=== PATIENT | female | born 1950 | race African-American/Black ===

== ENCOUNTER → 2016-10-01 | Outpatient (CLI) | payer MEDICARE, BC ==
[2016-10-01 18:44] LABS: ALANINE AMINOTRANSFERASE 38 U/L (9-52); ALBUMIN 4.2 g/dL (3.5-5.0); ALKALINE PHOSPHATASE 95 U/L (38-126); ANION GAP 12 (5-19); ASPARTATE AMINO TRANSFERASE 30 U/L (14-36); BILIRUBIN,DIRECT 0.3 mg/dL (0.0-0.4); BILIRUBIN,TOTAL 0.5 mg/dL (0.2-1.3); BLOOD UREA NITROGEN 24 mg/dL (7-20); C-REACTIVE PROTEIN 12.2 mg/L (<10.0); CALCIUM 9.8 mg/dL (8.4-10.2); CARBON DIOXIDE 27 mmol/L (22-30); CHLORIDE 102 mmol/L (98-107); CREATININE RESULT 1.17 mg/dL (0.52-1.25); GLUCOSE 81 mg/dL (75-110); POTASSIUM 3.9 mmol/L (3.6-5.0); SODIUM 141.2 mmol/L (137-145); TOTAL PROTEIN 7.5 g/dL (6.3-8.2)
[2016-10-03 11:41] LABS: JO-1 ANTIBODY (ANACOMP) <0.2 AI (0.0-0.9)
== END ==
LOC: OD 16:42
PROVIDERS: ATTEND Student in an Organized Health Care Education/Training Program
DX: M25.511 Pain in right shoulder (principal); F51.01 Primary insomnia
CPT/HCPCS: 36415; 80053; 86140; 86225; 86235; 86430

== ENCOUNTER → 2016-10-30 | Outpatient (CLI) | payer BC ==
--- NOTE | 2016-10-30 18:38 | RADIOLOGY REPORT (SQ) ---
EXAM DESCRIPTION: MRI LUMBAR SPINE WITHOUT COMPLETED DATE/TIME: 10/30/2016 4:38 pm REASON FOR STUDY: LOW BACK PAIN M54.5 LOW BACK PAIN M25.552 PAIN IN LEFT HIP M25.551 PAIN IN RIGH T HIP COMPARISON: None. TECHNIQUE: Sagittal and Axial imaging includes T1, T2, STIR and gradient echo sequences. Coronal T2/ HASTE imaging. LIMITATIONS: None. FINDINGS: VISUALIZED UPPER ABDOMEN: Limited evaluation. Multiple bilateral renal cysts consistent with polycystic kidney disease. SEGMENTATION: No transitional anatomy. The lowest well-developed disc space is labeled L5-S1. ALIGNMENT: 3 mm anterolisthesis of L4 on L5. VERTEBRAE: Intact. BONE MARROW: Normal. No marrow replacement or reactive changes. DISC SIGNAL: Normal. No significant abnormal signal or loss of height. POSTERIOR ELEMENTS: Generally intact. No pars defect evident. HARDWARE: None in the spine. CORD AND CONUS: Normal in size and signal intensity. Conus at the appropriate level. SOFT TISSUES: No aortic aneurysm seen. No bulky retroperitoneal adenopathy or mass. No paraspinal mas s or fluid. L1-L2: Diffuse posterior annular bulge. Mild facet arthropathy. Mild spinal stenosis and exit sinan inal stenosis. L2-L3: Diffuse posterior annular bulge with left paracentral disc protrusion. Moderate to severe spi nal stenosis. Mild facet arthropathy. Mild exit foraminal stenosis. L3-L4: Diffuse posterior annular bulge. Severe facet arthropathy, particularly on the right. Modera te -severe spinal stenosis and severe right exit foraminal stenosis. L4-L5: Diffuse posterior annular bulge. Severe facet arthropathy. Severe spinal stenosis and modera te exit foraminal stenosis. L5-S1: Diffuse posterior annular bulge. Severe facet arthropathy. Moderate spinal stenosis and exit foraminal stenosis. LOWER THORACIC: Incompletely imaged. Diffuse posterior annular bulge at T12-L1 and facet arthropathy . Mild spinal stenosis and exit foraminal stenosis. SACRUM: Visualized upper sacrum intact. OTHER: No other significant findings. IMPRESSION: MULTILEVEL CHRONIC DEGENERATIVE CHANGES WITH STENOSIS DESCRIBED. NO APPARENT ACUTE F INDINGS. TECHNICAL DOCUMENTATION: JOB ID: [id number]- All Rights Reserved
== END ==
LOC: RAD 15:07
PROVIDERS: ATTEND Student in an Organized Health Care Education/Training Program
DX: M54.16 Radiculopathy, lumbar region (principal); M25.552 Pain in left hip; M25.551 Pain in right hip
CPT/HCPCS: 72148

== ENCOUNTER → 2016-11-05 | Day surgery (SDC) | payer MEDICARE, BC ==
--- NOTE | 2016-11-05 15:32 | RADIOLOGY REPORT (SQ) ---
EXAM DESCRIPTION: ARTHRO HIP INJ W/O ANESTH; FLUORO/NEEDLE PLACEMENT COMPLETED DATE/TIME: 11/05/2016 2:20 pm REASON FOR STUDY: BILATERAL HIP PAIN/LOW BACK PAIN W/ RADICULOPATHY M54.5 LOW BACK PAIN M25.551 P AIN IN RIGHT HIP M25.552 PAIN IN LEFT HIP COMPARISON: None. FLUOROSCOPY TIME: 0.6 minutes 1 images saved to PACS. LIMITATIONS: None. PROCEDURE: Procedure, risks, benefits and alternatives explained to patient who then gave written c onsent. The left hip was marked and a time-out was called for correct marking verification. Entry s ite marked using fluoroscopic guidance. Hip prepped and draped using sterile technique. Local anes thesia achieved using 1% lidocaine injection. Hypodermic needle introduced into the joint space und er direct fluoroscopic visualization. Non-ionic contrast instilled to confirm intra-articular positi on. Dilute gadolinium solution then injected. Needle removed and entry site covered with sterile b andage. No immediate complications noted. TECHNIQUE: Digital images acquired during fluoroscopy and stored on PACS. Patient immediately take n to the MR suite for additional imaging. INJECTION LOCATION: Left hip CONTRAST TYPE AND AMOUNT: 10 mL of dilute ProHance. 1 mL of Isovue IMPRESSION: SUCCESSFUL NEEDLE PLACEMENT AND INJECTION FOR LEFT HIP MR ARTHROGRAM. COMMENT: Quality ID 145: Final reports for procedures using fluoroscopy that document radiation exp osure indices, or exposure time and number of fluorographic images (if radiation exposure indices are not available) TECHNICAL DOCUMENTATION: JOB ID: [id number] [employer]- All Rights Reserved
--- NOTE | 2016-11-05 19:40 | RADIOLOGY REPORT (SQ) ---
EXAM DESCRIPTION: MRI LT LOWER JOINT WITH COMPLETED DATE/TIME: 11/05/2016 3:16 pm REASON FOR STUDY: BILATERAL HIP PAIN/LOW BACK PAIN W/ RADICULOPATHY M54.5 LOW BACK PAIN M25.551 P AIN IN RIGHT HIP M25.552 PAIN IN LEFT HIP COMPARISON: None. TECHNIQUE: Post arthrogram imaging is performed using T1 and T1 and T2 fat saturated sequences of th e pelvis and specific hip of interest. LIMITATIONS: None. FINDINGS: JOINT DISTENSION: Adequate. No loose bodies are appreciated. BONE MARROW: No marrow replacement. No suspicious bone lesion or marrow edema in the pelvis or proxi mal femurs. Mild reactive endplate edema in the lower lumbar spine. Multilevel disc disease is pres ent. LEFT FEMORAL HEAD, NECK, AND ACETABULUM: No fracture or AVN. No worrisome bone lesion. No significa nt femoral or acetabular erosions or cysts. LEFT LABRUM AND CARTILAGE: No focal hyaline cartilage lesions. No discrete labral tear. No paralabr al cyst. OPPOSITE HIP: Limited evaluation. No fracture, AVN or bone lesion. No effusion. REMAINDER OF THE OSSEOUS PELVIS: SI joints are intact. Symphysis pubis intact. MUSCLES AND SOFT TISSUES: Fairly extensive edema in the gluteus medius muscle. Fluid along insertion on the greater trochanter, appearance suggests complete to near complete tendon tear. No significan t bursitis. Fluid along the right common hamstring origin, potential partial avulsion. PELVIC SOFT TISSUES: No inguinal adenopathy or hernia evident. No intrapelvic mass or abnormal fluid detected. SCIATIC NERVE: Normal signal. Normal adjacent tissues. OTHER: No other significant finding. IMPRESSION: 1. Left gluteus medius tear. 2. Left hip otherwise relatively intact. 3. Findings rowley ggesting partial tear of the right hamstring origin. Incomplete evaluation on today's dedicated left hip MR. TECHNICAL DOCUMENTATION: JOB ID: [id number] [employer]- All Rights Reserved
== END ==
LOC: RAD 13:01
PROVIDERS: ATTEND Student in an Organized Health Care Education/Training Program
PROC: BQ01ZZZ Plain Radiography of Left Hip (ICD-10-PCS; principal; 2016-11-05)
DX: M54.5 Low back pain (principal); M25.551 Pain in right hip; M25.552 Pain in left hip
CPT/HCPCS: 73722; 77002; 27093; A9576

== ENCOUNTER → 2016-11-07 | Day surgery (SDC) | payer MEDICARE, BC ==
--- NOTE | 2016-11-07 17:19 | RADIOLOGY REPORT (SQ) ---
EXAM DESCRIPTION: FLUORO/NEEDLE PLACEMENT COMPLETED DATE/TIME: 11/07/2016 1:51 pm REASON FOR STUDY: RIGHT HIP PAIN (M25.551) M54.5 LOW BACK PAIN M25.551 PAIN IN RIGHT HIP M25.552 PAIN IN LEFT HIP COMPARISON: Post right hip MRI same date FLUOROSCOPY TIME: 9 seconds 1 digital radiographic images saved to PACS. LIMITATIONS: None. PROCEDURE: Procedure, risks, benefits and alternatives explained to patient who then gave written c onsent. The right hip was marked and a time-out was called for correct marking verification. Entry site marked using fluoroscopic guidance. Hip prepped and draped using sterile technique. Local ane sthesia achieved using 7 mL of 1% lidocaine injection. 22 gauge spinal needle introduced into the kraig int space under direct fluoroscopic visualization. Non-ionic contrast instilled to confirm intra-art icular position. Dilute gadolinium solution then injected. Needle removed and entry site covered w ith sterile bandage. No immediate complications noted. TECHNIQUE: Digital images acquired during fluoroscopy and stored on PACS. Patient immediately take n to the MR suite for additional imaging. INJECTION LOCATION: Right hip joint CONTRAST TYPE AND AMOUNT: 1 mL of Isovue-300 followed by 7 mL of dilute ProHance gadolinium IMPRESSION: SUCCESSFUL NEEDLE PLACEMENT AND INJECTION FOR RIGHT HIP MR ARTHROGRAM. COMMENT: Quality ID 145: Final reports for procedures using fluoroscopy that document radiation exp osure indices, or exposure time and number of fluorographic images (if radiation exposure indices are not available) TECHNICAL DOCUMENTATION: JOB ID: [id number] [employer]- All Rights Reserved
--- NOTE | 2016-11-07 17:26 | RADIOLOGY REPORT (SQ) ---
EXAM DESCRIPTION: MRI RT LOWER JOINT WITH COMPLETED DATE/TIME: 11/07/2016 2:40 pm REASON FOR STUDY: RIGHT HIP PAIN (M25.551) M54.5 LOW BACK PAIN M25.551 PAIN IN RIGHT HIP M25.552 PAIN IN LEFT HIP COMPARISON: None. TECHNIQUE: Post arthrogram imaging is performed using T1 and T1 and T2 fat saturated sequences of th e pelvis and specific hip of interest. LIMITATIONS: None. FINDINGS: RIGHT HIP JOINT DISTENSION: Small amount of dilute gadolinium in the joint space. Most of the injected materia l extravasated inferiorly. No gross right hip loose body. BONE MARROW: No edema. No marrow replacement. FEMORAL HEAD, NECK, AND ACETABULUM: No occult fracture. No osteophytes or subchondral cysts. Normal s phericity of femoral head/neck junction. No acetabular dysplasia. No evidence of femoroacetabular imp ingement. LABRUM AND CARTILAGE: No labral tear. Cartilage of normal thickness without delamination. No paralab ral cysts. PUBIC RAMI AND ISCHIUM: No occult fracture. SACRUM AND EVIE: SI joints normal in signal. No occult fracture. MUSCLES AND SOFT TISSUES: On the right side, no significant trochanteric bursa fluid or gluteal muscl e edema is present. There is a high-grade partial thickness tear at the proximal attachment of the b iceps femoris tendon to the right ischial tuberosity best shown on coronal STIR image 17 and axial im ages 18-25. PELVIC SOFT TISSUES: Post hysterectomy. No masses or adenopathy SCIATIC NERVE: Identified without masses. OTHER: Lower lumbar facet arthropathy IMPRESSION: No primary right hip joint abnormality. No trochanteric bursitis or gluteal tendinopath y right hip High-grade tendinopathy with partial thickness tear right biceps femoris tendon attachment to the isc hial tuberosity TECHNICAL DOCUMENTATION: JOB ID: [id number] [employer]- All Rights Reserved
== END ==
LOC: RAD 12:48
PROVIDERS: ATTEND Student in an Organized Health Care Education/Training Program
PROC: BQ00ZZZ Plain Radiography of Right Hip (ICD-10-PCS; principal; 2016-11-07)
DX: S73.191A Other sprain of right hip, initial encounter (principal); X58.XXXA Exposure to other specified factors, initial encounter; M25.551 Pain in right hip; M25.552 Pain in left hip; M54.5 Low back pain
CPT/HCPCS: 73722; 77002; 27095; A9576

== ENCOUNTER → 2016-11-18 | Outpatient (CLI) | payer MEDICARE, BC ==
[2016-11-18 15:25] LABS: ALANINE AMINOTRANSFERASE 37 U/L (9-52); ALBUMIN 4.3 g/dL (3.5-5.0); ALKALINE PHOSPHATASE 100 U/L (38-126); ANION GAP 12 (5-19); ASPARTATE AMINO TRANSFERASE 24 U/L (14-36); BILIRUBIN,DIRECT 0.3 mg/dL (0.0-0.4); BILIRUBIN,TOTAL 0.4 mg/dL (0.2-1.3); BLOOD UREA NITROGEN 27 mg/dL (7-20); C-REACTIVE PROTEIN 6.9 mg/L (<10.0); CALCIUM 10.2 mg/dL (8.4-10.2); CARBON DIOXIDE 26 mmol/L (22-30); CHLORIDE 104 mmol/L (98-107); CREATININE RESULT 1.19 mg/dL (0.52-1.25); GLUCOSE 97 mg/dL (75-110); POTASSIUM 3.6 mmol/L (3.6-5.0); SODIUM 141.9 mmol/L (137-145); TOTAL PROTEIN 8.2 g/dL (6.3-8.2)
[2016-11-20 13:38] LABS: JO-1 ANTIBODY (ANACOMP) <0.2 AI (0.0-0.9)
[2016-11-23 11:17] LABS: LYME DISEASE IGG AND IGM AB <0.91 ISR (0.00-0.90); LYME IGG WB INTERP Negative (.); LYME IGM WB INTERP Negative (.)
== END ==
LOC: OD 13:49
PROVIDERS: ATTEND Student in an Organized Health Care Education/Training Program
DX: M25.511 Pain in right shoulder (principal); F51.01 Primary insomnia
CPT/HCPCS: 36415; 80053; 86140; 86225; 86235; 86430; 86617; 86618

== ENCOUNTER → 2016-12-16 | Outpatient (CLI) | payer MEDICARE, BC ==
--- NOTE | 2016-12-16 16:01 | RADIOLOGY REPORT (SQ) ---
EXAM DESCRIPTION: CHEST PA/LAT COMPLETED DATE/TIME: 12/16/2016 3:10 pm REASON FOR STUDY: PRE OP COMPARISON: 11/28/2013 EXAM PARAMETERS: NUMBER OF VIEWS: two views TECHNIQUE: Digital Frontal and Lateral radiographic views of the chest acquired. RADIATION DOSE: NA LIMITATIONS: none FINDINGS: LUNGS AND PLEURA: No opacities, masses or pneumothorax. No pleural effusion. MEDIASTINUM AND HILAR STRUCTURES: No masses or contour abnormalities. HEART AND VASCULAR STRUCTURES: Heart normal size. No evidence for failure. BONES: No acute findings. HARDWARE: None in the chest. OTHER: No other significant finding. IMPRESSION: NO SIGNIFICANT RADIOGRAPHIC FINDING IN THE CHEST. TECHNICAL DOCUMENTATION: JOB ID: [id number] [employer]- All Rights Reserved
--- NOTE | 2016-12-17 09:32 | RADIOLOGY REPORT (SQ) ---
EXAM DESCRIPTION: CAROTID DOPPLER COMPLETED DATE/TIME: 12/16/2016 4:02 pm REASON FOR STUDY: BRUIT R09.89 OTH SYMPTOMS AND SIGNS INVOLVING THE CIRC AND RESP SY COMPARISON: None. TECHNIQUE: Grayscale ultrasound, Doppler velocity and spectra, and color Doppler images acquired of the extra-cranial carotid and vertebral arteries. Images stored on PACS. LIMITATIONS: None. FINDINGS: RIGHT CAROTID CCA Velocities: Within normal limits. ICA Velocities Peak systolic 0.51 m/s. End diastolic 0.16 m/s. Proximal ICA/CCA peak systolic ratio 0.9. Spectra normal. No significant plaque. LEFT CAROTID CCA Velocities: Within normal limits. ICA Velocities Peak systolic 0.57 m/s. End diastolic 0.18 m/s. Proximal ICA/CCA peak systolic ratio 1.0. Spectra normal. No significant plaque. VERTEBRAL ARTERIES: Antegrade flow. Normal waveforms. SUBCLAVIAN ARTERIES: No finding. OTHER: No other significant finding. IMPRESSION: NO HEMODYNAMICALLY SIGNIFICANT STENOSIS. COMMENT: Quality ID #195: Velocity criteria are extrapolated from the diameter data as defined by t he Society of Radiologists in Ultrasound Consensus Conference. Radiology 2003: 229; 340-346. TECHNICAL DOCUMENTATION: JOB ID: [id number] [employer]- All Rights Reserved
== END ==
LOC: RAD 14:51
PROVIDERS: ATTEND Student in an Organized Health Care Education/Training Program
DX: Z01.818 Encounter for other preprocedural examination (principal); R09.89 Other specified symptoms and signs involving the circulatory and respiratory systems
CPT/HCPCS: 71020; 93880

== ENCOUNTER → 2017-01-01 | Day surgery (SDC) | payer MEDICARE, BC ==
[~2017-01-01] MED LIST: ACETAMINOPHEN 0 ML IV ONE; ALBUTEROL SULFATE 0.083% NEB 2.5 MG/3 ML AMPUL NEB ONE; BUPIVACAINE HCL 0.5 % INJ/PF 30 ML SDV ONE; CEFAZOLIN 2 GM/D5W RTU 2 GM/50 ML RTUPB IV PRN; EPHEDRINE SULFATE INJ 50 MG/1 ML AMPULE ONE; EPINEPHRINE INJ/PF 1 MG/1 ML AMPULE ONE; FENTANYL CITRATE INJ/PF 100 MCG/2 ML AMPUL ONE; FENTANYL CITRATE INJ/PF 250 MCG/5 ML AMPULE ONE; LIDOCAINE 0.5% INJ-PF (5 MG/ML) 50 ML SDV INJ PRN; MIDAZOLAM 2 MG/2 ML INJ ONE; MORPHINE SULFATE 10 MG/ML INJ ONE; PROPOFOL INJ 200 MG/20 ML VIAL IV ONE; RINGERS SOLUTION,LACTATED 1,000 ML IV PRN
[2017-01-01 06:03] VITALS: BP 145/85
[2017-01-01 06:04] LABS: APPEARANCE,URINE SLIGHTLY-CLOUDY; BILIRUBIN,URINE NEGATIVE (NEGATIVE); GLUCOSE, URINE NEGATIVE (NEGATIVE); KETONES,URINE NEGATIVE (NEGATIVE); LEUKOCYTE ESTERASE,URINE TRACE (NEGATIVE); NITRITE,URINE NEGATIVE (NEGATIVE); PROTEIN,URINE NEGATIVE (NEGATIVE); URINE SPECIFIC GRAVITY 1.019; UROBILINOGEN,URINE NEGATIVE mg/dL (<2.0)
[2017-01-01 06:06] LABS: ABSOLUTE BASOPHILS # (AUTO) 0.1 10^3/uL (0.0-0.2); ABSOLUTE EOSINOPHILS # (AUTO) 0.6 10^3/uL (0.0-0.6); ABSOLUTE LYMPHOCYTES (AUTO) 2.6 10^3/uL (0.5-4.7); ABSOLUTE MONOCYTES (AUTO) 0.7 10^3/uL (0.1-1.4); ABSOLUTE NEUT (AUTO) 5.1 10^3/uL (1.7-8.2); BASOPHILS % (AUTO) 0.8 % (0-2); EOSINOPHILS % (AUTO) 6.2 % (0-6); HEMATOCRIT 39.6 % (36.0-47.0); HEMOGLOBIN 13.6 g/dL (12.0-15.5); HGB HCT DIFFERENCE 1.2; LYMPHOCYTES % (AUTO) 28.8 % (13-45); MEAN CORPUSCULAR HEMOGLOBIN 30.7 pg (27.0-33.4); MEAN CORPUSCULAR HGB CONC 34.2 g/dL (32.0-36.0); MEAN CORPUSCULAR VOLUME 90 fl (80-97); MONOCYTES % (AUTO) 7.8 % (3-13); RED BLOOD COUNT 4.41 10^6/uL (3.72-5.28); RED CELL DISTRIBUTION WIDTH 13.6 % (11.5-14.0); SEGMENTED NEUTROPHILS % (AUTO) 56.4 % (42-78); WHITE BLOOD COUNT 9.1 10^3/uL (4.0-10.5)
[2017-01-01 06:19] LABS: ANION GAP 14 (5-19); BLOOD UREA NITROGEN 24 mg/dL (7-20); CALCIUM 9.4 mg/dL (8.4-10.2); CARBON DIOXIDE 24 mmol/L (22-30); CHLORIDE 105 mmol/L (98-107); CREATININE RESULT 0.95 mg/dL (0.52-1.25); GLUCOSE 121 mg/dL (75-110); POTASSIUM 3.7 mmol/L (3.6-5.0)
--- NOTE | 2017-01-01 13:09 | EKG REPORT ---
SEVERITY:- ABNORMAL ECG - SINUS RHYTHM LEFT VENTRICULAR HYPERTROPHY : Confirmed by: Jaguar Roberto 01-Jan-2017 13:08:00
== END ==
LOC: OROUT 05:12
PROVIDERS: ATTEND Orthopaedic Surgery
DX: Z01.818 Encounter for other preprocedural examination (principal)
CPT/HCPCS: 36415; 85025; 80048; 81001; 93005; 93010; 94640; A9270; J0690; J0131; J0171; J2250; J2270; J2704; J3010; J3490

== ENCOUNTER → 2017-03-17 | Outpatient (CLI) | payer MEDICARE, BC | LOC: OD 14:46 | PROVIDERS: ATTEND Student in an Organized Health Care Education/Training Program | DX: E55.9 Vitamin D deficiency, unspecified (principal) | CPT/HCPCS: 36415; 82306 ==

== ENCOUNTER → 2017-03-17 | Outpatient (CLI) | payer MEDICARE, BC ==
--- NOTE | 2017-03-17 17:22 | RADIOLOGY REPORT (SQ) ---
EXAM DESCRIPTION: CLAVICLE RIGHT COMPLETED DATE/TIME: 03/17/2017 3:49 pm REASON FOR STUDY: CLAVICLE SWELLING COMPARISON: Right shoulder films 04/21/2016 Two-view chest 12/16/2016 NUMBER OF VIEWS: Two views. TECHNIQUE: Frontal and angled images were acquired of the right clavicle. LIMITATIONS: None. FINDINGS: MINERALIZATION: Normal. BONES: No acute fracture or dislocation. No worrisome bone lesions. No glenohumeral malalignment. No widening at the acromioclavicular joint. SOFT TISSUES: No obvious swelling or foreign body. OTHER: Since the prior shoulder films from 04/21/2016, patient has developed bony spurring along the undersurface of the acromion, narrowing the subacromial recess. IMPRESSION: Bony spurring along the undersurface of the acromion, new compared to 04/21/2016. This likely causes rotator cuff impingement. No widening at the acromioclavicular joint. No fracture. No gross calcified soft tissue mass TECHNICAL DOCUMENTATION: JOB ID: [id number]- All Rights Reserved
== END ==
LOC: RAD 15:17
PROVIDERS: ATTEND Student in an Organized Health Care Education/Training Program
DX: R22.31 Localized swelling, mass and lump, right upper limb (principal); M75.91 Shoulder lesion, unspecified, right shoulder

== ENCOUNTER → 2017-05-05 | Outpatient (CLI) | payer MEDICARE, BC ==
--- NOTE | 2017-05-05 16:03 | WOMENS IMAGING REPORT ---
EXAM DESCRIPTION: 3D SCREENING MAMMO BILAT COMPLETED DATE/TIME: 05/05/2017 2:44 pm REASON FOR STUDY: ROUTINE SCREENING; Z12.31 Z12.31 ENCNTR SCREEN MAMMOGRAM FOR MALIGNANT NEOPLASM O F FRANKY COMPARISON: Multiple since 2008 TECHNIQUE: Standard craniocaudal and mediolateral oblique views of each breast recorded using digita l acquisition and breast tomosynthesis. LIMITATIONS: None. FINDINGS: No masses, calcifications or architectural distortion. No areas of suspicion. Read with the assistance of CAD. .[facility] - R2 Cenova Version 1.3 .[facility] - R2 Cenova Version 1.3 .[facility] - R2 Cenova Version 2.4 .[facility] [place] - R2 Cenova Version 2.4 .[facility] - R2 Image Editor Version 9.2 IMPRESSION: NORMAL MAMMOGRAM. BIRADS 1. BREAST DENSITY: b. There are scattered areas of fibroglandular density. BIRAD: 1 NEGATIVE RECOMMENDATION: ROUTINE SCREENING COMMENT: The patient has been notified of the results by letter per SA requirements. Additional no tification policies are in place for contacting patient with suspicious or incomplete findings. Quality ID #225: The [employer] recommends an annual screening mammogram for women aged 40 years or over. This facility utilizes a reminder system to ensure that all patients receive reminder letters, and/or direct phone calls for appointments. This includes reminders for routine scr eening mammograms, diagnostic mammograms, or other Breast Imaging Interventions when appropriate. Th is patient will be placed in the appropriate reminder system. The [employer] (ACR) has developed recommendations for screening MRI of the breast s in certain patient populations, to be used in conjunction with mammography. Breast MRI surveillanc e may be appropriate for women with more than 20% lifetime risk of developing breast cancer as deter mined by genetic testing, significant family history of the disease, or history of mantle radiation f or Hodgkins Disease. ACR Practice Guidelines 2008. DBT Technology DBT is a type of tomographic mammography. With conventional mammography, overlapping breast tissue ma y make lesions difficult to detect, even with good compression. DBT uses an x-ray tube that rotates a round the breast, taking images at different angles. These images are then combined to create thin sl ices of the breast that the radiologist can view as a 3D reconstruction. The [employer] unit can perform full-field digital mammograms (2D imaging); or DBT (3D imaging); or both, in a combination mode that quickly performs both the mammogram and the tomosynthesis scan while the breast is still compressed. PQRS 6045F: Fluoroscopic imaging is not utilized for breast tomosynthesis. TECHNICAL DOCUMENTATION: FINDING NUMBER: (1) ASSESSMENT: (1) JOB ID: [id number] [employer]- All Rights Reserved
== END ==
LOC: WI 14:30
DX: Z12.31 Encounter for screening mammogram for malignant neoplasm of breast (principal)
CPT/HCPCS: 77063; G0202; 77067

== ENCOUNTER → 2017-05-08 | Outpatient (CLI) | payer MEDICARE, BC ==
--- NOTE | 2017-05-08 09:38 | RADIOLOGY REPORT (SQ) ---
EXAM DESCRIPTION: MRI CHEST WITHOUT COMPLETED DATE/TIME: 05/08/2017 8:22 am REASON FOR STUDY: OTHER CHEST PAIN (R07.89) R07.89 OTHER CHEST PAIN COMPARISON: Clavicle radiographs from February. TECHNIQUE: Multiplanar imaging of the right chest wall/clavicle to include fat and fluid sensitive s equences. LIMITATIONS: None. FINDINGS: BONE MARROW: Hypertrophy of bone and soft tissue at the right sternoclavicular joint. Mar row edema in the medial and of the clavicle and adjacent manubrium. As imaged, no aggressive bone ly sis. Lesser hypertrophic presumably degenerative overgrowth in the left sternoclavicular joint also noted. Marrow signal throughout the remainder of the clavicle and visualized scapula and right shoul ruth is normal. SOFT TISSUES: Mild regional soft tissue edema about the sternoclavicular joint without evidence of dr ainable collection. No supraclavicular adenopathy. No enlarged axillary nodes are suggested. No ab normal signal or edema grossly detected in the visualized mediastinum. No right apical lung lesion e vident. OTHER: No other significant finding. IMPRESSION: 1. Changes in the right sternoclavicular joint which are typically related to osteoarthr itis in a healthy adult. Given the history of recent infection, for which the patient was reportedly treated with antibiotics, septic joint with associated medial clavicular and manubrial osteomyelitis is in the differential. No aggressive bone destruction suggested currently. No adjacent soft tissu e abscess. Differential would also include rheumatoid arthritis as well as SAPHO syndrome in the fritz ropriate clinical presentation. TECHNICAL DOCUMENTATION: JOB ID: [id number] [employer]- All Rights Reserved
== END ==
LOC: RAD 07:17
PROVIDERS: ATTEND Orthopaedic Surgery
DX: R07.89 Other chest pain (principal)
CPT/HCPCS: 71550

== ENCOUNTER → 2017-05-14 | Outpatient (CLI) | payer MEDICARE, BC ==
[2017-05-14 13:32] LABS: ABSOLUTE BASOPHILS # (AUTO) 0.1 10^3/uL (0.0-0.2); ABSOLUTE EOSINOPHILS # (AUTO) 0.3 10^3/uL (0.0-0.6); ABSOLUTE LYMPHOCYTES (AUTO) 2.4 10^3/uL (0.5-4.7); ABSOLUTE MONOCYTES (AUTO) 0.6 10^3/uL (0.1-1.4); ABSOLUTE NEUT (AUTO) 4.3 10^3/uL (1.7-8.2); BASOPHILS % (AUTO) 1.7 % (0-2); EOSINOPHILS % (AUTO) 3.3 % (0-6); HEMATOCRIT 40.5 % (36.0-47.0); HEMOGLOBIN 13.8 g/dL (12.0-15.5); HGB HCT DIFFERENCE 0.9; LYMPHOCYTES % (AUTO) 30.6 % (13-45); MEAN CORPUSCULAR HEMOGLOBIN 30.6 pg (27.0-33.4); MEAN CORPUSCULAR HGB CONC 34.1 g/dL (32.0-36.0); MEAN CORPUSCULAR VOLUME 90 fl (80-97); MONOCYTES % (AUTO) 8.3 % (3-13); RED CELL DISTRIBUTION WIDTH 14.3 % (11.5-14.0); SEGMENTED NEUTROPHILS % (AUTO) 56.1 % (42-78); WHITE BLOOD COUNT 7.7 10^3/uL (4.0-10.5)
[2017-05-14 13:47] LABS: ABSOLUTE BASOPHILS # (AUTO) 0.1 10^3/uL (0.0-0.2); ABSOLUTE EOSINOPHILS # (AUTO) 0.3 10^3/uL (0.0-0.6); ABSOLUTE LYMPHOCYTES (AUTO) 2.4 10^3/uL (0.5-4.7); ABSOLUTE MONOCYTES (AUTO) 0.6 10^3/uL (0.1-1.4); ABSOLUTE NEUT (AUTO) 4.3 10^3/uL (1.7-8.2); BASOPHILS % (AUTO) 1.7 % (0-2); EOSINOPHILS % (AUTO) 3.3 % (0-6); HEMATOCRIT 40.5 % (36.0-47.0); HEMOGLOBIN 13.8 g/dL (12.0-15.5); HGB HCT DIFFERENCE 0.9; LYMPHOCYTES % (AUTO) 30.6 % (13-45); MEAN CORPUSCULAR HEMOGLOBIN 30.6 pg (27.0-33.4); MEAN CORPUSCULAR HGB CONC 34.1 g/dL (32.0-36.0); MEAN CORPUSCULAR VOLUME 90 fl (80-97); MONOCYTES % (AUTO) 8.3 % (3-13); RED CELL DISTRIBUTION WIDTH 14.3 % (11.5-14.0); SEGMENTED NEUTROPHILS % (AUTO) 56.1 % (42-78); WHITE BLOOD COUNT 7.7 10^3/uL (4.0-10.5)
[2017-05-14 13:51] LABS: ALANINE AMINOTRANSFERASE 38 U/L (9-52); ALBUMIN 4.4 g/dL (3.5-5.0); ALKALINE PHOSPHATASE 95 U/L (38-126); ANION GAP 12 (5-19); ASPARTATE AMINO TRANSFERASE 28 U/L (14-36); BILIRUBIN,DIRECT 0.3 mg/dL (0.0-0.4); BILIRUBIN,TOTAL 0.4 mg/dL (0.2-1.3); BLOOD UREA NITROGEN 20 mg/dL (7-20); CALCIUM 10.3 mg/dL (8.4-10.2); CARBON DIOXIDE 27 mmol/L (22-30); CHLORIDE 102 mmol/L (98-107); CHOLESTEROL 216.37 mg/dL (0-200); Direct HDL 48 mg/dL (>40); GLUCOSE 84 mg/dL (75-110); POTASSIUM 4.6 mmol/L (3.6-5.0); SODIUM 141.1 mmol/L (137-145); TOTAL PROTEIN 7.5 g/dL (6.3-8.2); TRIGLYCERIDES 97 mg/dL (<150)
[2017-05-14 14:02] LABS: DIRECT LDL 139 mg/dL (<100)
[2017-05-14 14:16] LABS: ERYTHROCYTE SEDIMENTATION RATE 26 mm/hr (0-30)
== END ==
LOC: OD 12:29
PROVIDERS: ATTEND Orthopaedic Surgery
DX: Z01.818 Encounter for other preprocedural examination (principal); E78.5 Hyperlipidemia, unspecified; I10 Essential (primary) hypertension; E55.9 Vitamin D deficiency, unspecified
CPT/HCPCS: 36415; 80053; 80061; 82306; 84443; 85025; 85652; 86140

== ENCOUNTER 2017-12-05 13:09 | Emergency (ER) | payer MEDICARE, BC ==
[2017-12-05 13:17] VITALS: BP 143/80
[2017-12-05] MEDS ORDERED: ACETAMINOPHEN 325 MG TABLET PO ONE (13:48)
--- NOTE | 2017-12-05 13:50 | ER Document Report ---
ED Medical Screen (RME) - General Chief Complaint: Leg Swelling Stated Complaint: SWOLLEN LEG/ARM Time Seen by Provider: 12/05/17 13:45 Notes: RAPID MEDICAL EVALUATION DISCLOSURE I have seen this patient as part of a Rapid Medical Evaluation and, if applicable, placed any initially appropriate orders. The patient will be seen and fully evaluated, including a full history and physical exam, by a provider ( in Main ED or Fast Track) when a room becomes available. 67-year-old female here with complaints of right upper/lower extremity swelling that she noticed yesterday evening. She has had throbbing in the right upper extremity but not the right lower extremity. She has not tried anything for the symptoms. She has been urinating per usual without decrease in urination. She denies any previous history of blood clots or family history of same. She denies any chest pain shortness of breath. EXAM Minimal to mild swelling noted of right upper/lower extremity without much pitting No erythema induration fluctuance drainage to suggest infectious etiology TRAVEL OUTSIDE OF THE [place] IN LAST 30 DAYS: No - Related Data Allergies/Adverse Reactions: JAKUB Inhibitors [Jakub Inhibitors] Allergy (Verified 12/05/17 13:48) Swelling lisinopril [Lisinopril] Allergy (Verified 12/05/17 13:48) prednisone Allergy (Verified 12/05/17 13:48) Past Medical History - Social History Chew tobacco use (# tins/day): No Frequency of alcohol use: Occasional Drug Abuse: None - Past Medical History Cardiac Medical History: Reports: Hx Hypercholesterolemia, Hx Hypertension Denies: Hx Coronary Artery Disease, Hx Heart Attack Pulmonary Medical History: Reports: Hx Pneumonia Denies: Hx Asthma, Hx Bronchitis, Hx COPD, Hx Tuberculosis Neurological Medical History: Denies: Hx Cerebrovascular Accident, Hx Seizures Renal/ Medical History: Denies: Hx Peritoneal Dialysis Musculoskeltal Medical History: Reports Hx Arthritis Past Surgical History: Reports: Hx Hysterectomy - Immunizations Hx Diphtheria, Pertussis, Tetanus Vaccination: Yes - 2013 Physical Exam - Vital signs Vitals: Temp Pulse Resp BP Pulse Ox 98.1 F 100 18 143/80 H 94 12/05/17 13:14 12/05/17 13:14 12/05/17 13:14 12/05/17 13:14 12/05/17 13:14 Course - Vital Signs Vital signs: Temp Pulse Resp BP Pulse Ox 98.1 F 100 18 143/80 H 94 12/05/17 13:14 12/05/17 13:14 12/05/17 13:14 12/05/17 13:14 12/05/17 13:14 Doctor's Discharge - Discharge Referrals: VIRGINIA LANG MD [Primary Care Provider] - Follow up as needed
[2017-12-05 14:36] LABS: ABSOLUTE BASOPHILS # (AUTO) 0.1 10^3/uL (0.0-0.2); ABSOLUTE EOSINOPHILS # (AUTO) 0.3 10^3/uL (0.0-0.6); ABSOLUTE LYMPHOCYTES (AUTO) 1.9 10^3/uL (0.5-4.7); ABSOLUTE MONOCYTES (AUTO) 0.6 10^3/uL (0.1-1.4); ABSOLUTE NEUT (AUTO) 4.1 10^3/uL (1.7-8.2); BASOPHILS % (AUTO) 1.2 % (0-2); EOSINOPHILS % (AUTO) 4.3 % (0-6); HEMATOCRIT 40.9 % (36.0-47.0); HEMOGLOBIN 14.2 g/dL (12.0-15.5); LYMPHOCYTES % (AUTO) 27.4 % (13-45); MEAN CORPUSCULAR HEMOGLOBIN 30.7 pg (27.0-33.4); MEAN CORPUSCULAR HGB CONC 34.8 g/dL (32.0-36.0); MEAN CORPUSCULAR VOLUME 88 fl (80-97); MONOCYTES % (AUTO) 8.7 % (3-13); PLATELET COUNT 386 10^3/uL (150-450); RED BLOOD COUNT 4.63 10^6/uL (3.72-5.28); RED CELL DISTRIBUTION WIDTH 14.5 % (11.5-14.0); SEGMENTED NEUTROPHILS % (AUTO) 58.4 % (42-78); TOTAL CELLS COUNTED % (AUTO) 100 %
[2017-12-05 14:59] LABS: ALANINE AMINOTRANSFERASE 30 U/L (9-52); ALBUMIN 4.1 g/dL (3.5-5.0); ALKALINE PHOSPHATASE 84 U/L (38-126); ANION GAP 8 (5-19); ASPARTATE AMINO TRANSFERASE 21 U/L (14-36); BILIRUBIN,DIRECT 0.3 mg/dL (0.0-0.4); BILIRUBIN,TOTAL 0.5 mg/dL (0.2-1.3); BLOOD UREA NITROGEN 21 mg/dL (7-20); CALCIUM 9.4 mg/dL (8.4-10.2); CARBON DIOXIDE 33 mmol/L (22-30); CHLORIDE 100 mmol/L (98-107); GLUCOSE 94 mg/dL (75-110); POTASSIUM 4.1 mmol/L (3.6-5.0); SODIUM 140.6 mmol/L (137-145); TOTAL PROTEIN 7.3 g/dL (6.3-8.2)
--- NOTE | 2017-12-05 16:16 | ER Document Report ---
ED General - General Chief Complaint: Leg Swelling Stated Complaint: SWOLLEN LEG/ARM Time Seen by Provider: 12/05/17 13:45 Mode of Arrival: Ambulatory Information source: Patient Notes: Patient presents complaining of right lower extremity swelling that started yesterday. Today patient noticed that her right upper extremity is slightly swollen. Patient denies any injuries. Patient denies any long travel or immobilization. Patient does acknowledge that she was painting a deck yesterday for about 3 hours. Patient denies any chest pain or shortness of breath. TRAVEL OUTSIDE OF THE [place] IN LAST 30 DAYS: No - HPI Onset: Yesterday Onset/Duration: Gradual Quality of pain: No pain Pain Level: Denies Associated symptoms: Other - Right lower extremity swelling, right upper extremity swelling. denies: Chest pain, Nonproductive cough, Productive cough, Fever, Headache Exacerbated by: Denies Relieved by: Denies Similar symptoms previously: No Recently seen / treated by doctor: No - Related Data Allergies/Adverse Reactions: JAKUB Inhibitors [Jakub Inhibitors] Allergy (Verified 12/05/17 13:48) Swelling lisinopril [Lisinopril] Allergy (Verified 12/05/17 13:48) prednisone Allergy (Verified 12/05/17 13:48) Past Medical History - General Information source: Patient - Social History Smoking Status: Current Every Day Smoker Chew tobacco use (# tins/day): No Smoking Education Provided: Yes Frequency of alcohol use: Occasional Drug Abuse: None Occupation: Retired Lives with: Spouse/Significant other Family History: Reviewed & Not Pertinent Patient has suicidal ideation: No Patient has homicidal ideation: No - Past Medical History Cardiac Medical History: Reports: Hx Hypercholesterolemia, Hx Hypertension Denies: Hx Coronary Artery Disease, Hx Heart Attack Pulmonary Medical History: Reports: Hx Pneumonia Denies: Hx Asthma, Hx Bronchitis, Hx COPD, Hx Tuberculosis Neurological Medical History: Denies: Hx Cerebrovascular Accident, Hx Seizures Renal/ Medical History: Denies: Hx Peritoneal Dialysis Musculoskeletal Medical History: Reports Hx Arthritis Past Surgical History: Reports: Hx Hysterectomy - Immunizations Hx Diphtheria, Pertussis, Tetanus Vaccination: Yes - 2013 Hx Pneumococcal Vaccination: 05/25/09 Review of Systems - Review of Systems Constitutional: No symptoms reported. denies: Fever, Recent illness EENT: No symptoms reported Cardiovascular: No symptoms reported. denies: Chest pain, Palpitations Respiratory: No symptoms reported. denies: Cough, Short of breath Gastrointestinal: No symptoms reported. denies: Vomiting Genitourinary: No symptoms reported Female Genitourinary: No symptoms reported Musculoskeletal: Other - Right lower extremity swelling, right upper extremity swelling. denies: Back pain Skin: No symptoms reported Hematologic/Lymphatic: No symptoms reported Neurological/Psychological: No symptoms reported Physical Exam - Vital signs Vitals: Temp Pulse Resp BP Pulse Ox 98.1 F 100 18 143/80 H 94 12/05/17 13:14 12/05/17 13:14 12/05/17 13:14 12/05/17 13:14 12/05/17 13:14 - General General appearance: Appears well, Alert In distress: None - HEENT Head: Normocephalic, Atraumatic Eyes: Normal Conjunctiva: Normal Nasal: Normal Mouth/Lips: Normal Mucous membranes: Normal Neck: Normal, Supple. No: Lymphadenopathy - Respiratory Respiratory status: No respiratory distress Chest status: Nontender Breath sounds: Normal Chest palpation: Normal - Cardiovascular Rhythm: Regular Heart sounds: S1 appreciated, S2 appreciated Murmur: No Pulses: Normal: Radial, Dorsalis pedis - Back Back: Normal, Nontender. No: CVA tenderness - Extremities General upper extremity: Nontender, Edema - 1+ RUE, Normal strength General lower extremity: Nontender, Edema - 1+ RLE, Normal strength - Neurological Neuro grossly intact: Yes Cognition: Normal [place] Coma Scale Eye Opening: Spontaneous Bobbi Coma Scale Verbal: Oriented Bobbi Coma Scale Motor: Obeys Commands [place] Coma Scale Total: 15 - Psychological Associated symptoms: Normal affect, Normal mood - Skin Skin Temperature: Warm Skin Moisture: Dry Skin Color: Normal Course - Re-evaluation Re-evalutation: 12/05/17 17:20 Pulmonary report from Doppler cost recovery technician negative for any DVT. Consulted with Dr. Saenz regarding patient presentation and diagnostic evaluation. No additional testing advised. Recommends outpatient follow-up with primary doctor for recheck. - Vital Signs Vital signs: Temp Pulse Resp BP Pulse Ox 98.1 F 100 18 143/80 H 94 12/05/17 13:14 12/05/17 13:14 12/05/17 13:14 12/05/17 13:14 12/05/17 13:14 - Laboratory Result Diagrams: 12/05/17 14:14 12/05/17 14:14 Laboratory results interpreted by me: 12/05/17 12/05/17 14:14 14:14 RDW 14.5 H Carbon Dioxide 33 H BUN 21 H Est GFR (Non-Af Amer) 50 L 12/05/17 17:20 Labs- Entire Visit 12/05/17 12/05/17 12/05/17 14:14 14:14 14:14 WBC 7.0 RBC 4.63 Hgb 14.2 Hct 40.9 MCV 88 MCH 30.7 MCHC 34.8 RDW 14.5 H Plt Count 386 Seg Neutrophils % 58.4 Lymphocytes % 27.4 Monocytes % 8.7 Eosinophils % 4.3 Basophils % 1.2 Absolute Neutrophils 4.1 Absolute Lymphocytes 1.9 Absolute Monocytes 0.6 Absolute Eosinophils 0.3 Absolute Basophils 0.1 Sodium 140.6 Potassium 4.1 Chloride 100 Carbon Dioxide 33 H Anion Gap 8 BUN 21 H Creatinine 1.09 Est GFR ( Amer) > 60 Est GFR (Non-Af Amer) 50 L Glucose 94 Calcium 9.4 Total Bilirubin 0.5 Direct Bilirubin 0.3 Neonat Total Bilirubin Not Reportable Neonat Direct Bilirubin Not Reportable Neonat Indirect Bili Not Reportable AST 21 ALT 30 Alkaline Phosphatase 84 NT-Pro-B Natriuret Pep 60 Total Protein 7.3 Albumin 4.1 Discharge - Discharge Clinical Impression: Swelling of right extremity Condition: Stable Disposition: HOME, SELF-CARE Instructions: Edema, Peripheral ([facility]) Additional Instructions: Return immediately for any new or worsening symptoms Followup with your primary care provider, call tomorrow to make a followup appointment Forms: Smoking Cessation Education Referrals: VIRGINIA LANG MD [Primary Care Provider] - 12/07/17
--- NOTE | 2017-12-06 12:37 | XCELERA REPORT ---
[address] [address] Upper Extremity Venous Evaluation Name: OLESYA LOPEZ Age: 67 yrs Gender: Female : 1950 Patient Status: Emergency Patient Location: ER Study Date: 12/05/2017 03:17 PM Procedure: Unilateral duplex scan of the right upper extremity veins was performed, including responses to compression and other maneuvers. Reason For Study: RUE/RLE swelling throbbing; DVT? Ordering Physician: ASHLEE HIDALGO Performed By: Choco Roa Right Side Venous Evaluation Normal vessel filling wall to wall, compression and augmentation as well as Colour flow down to the forearm veins. Interpretation Summary No duplex evidence of DVT or obstruction in the right upper extremity. : ASHLEE HIDALGO [place]
--- NOTE | 2017-12-06 12:38 | XCELERA REPORT ---
[address] [address] Upper Extremity Venous Evaluation Name: OLESYA LOPEZ Age: 67 yrs Gender: Female : 1950 Patient Status: Emergency Patient Location: ER Study Date: 12/05/2017 03:34 PM Procedure: Unilateral duplex scan of the right upper extremity veins was performed, including responses to compression and other maneuvers. Reason For Study: RUE/RLE swelling throbbing; DVT? Ordering Physician: ASHLEE HIDALGO Performed By: Choco Roa Right Side Venous Evaluation Normal vessel filling wall to wall, compression and augmentation as well as Colour flow down to the forearm veins. Interpretation Summary Normal compression, patency, spontaneous and phasic flow of the right upper extremity veins. : ASHLEE HIDALGO [place]
== END 2017-12-05 17:42 | disposition home or self-care (01) ==
LOC: ER 13:09
DX: M79.89 Other specified soft tissue disorders (principal); R60.9 Edema, unspecified; I10 Essential (primary) hypertension; F17.200 Nicotine dependence, unspecified, uncomplicated; Z88.8 Allergy status to other drugs, medicaments and biological substances
CPT/HCPCS: 99284; 36415; 85025; 80053; 83880; 93971 ×3; A9270

== ENCOUNTER 2018-02-21 03:19 | Emergency (ER) | payer BC, MEDICARE ==
[2018-02-21] MEDS ORDERED: ASPIRIN 81 MG TABLET, CHEWABLE PO ONE (03:51)
--- NOTE | 2018-02-21 04:26 | RADIOLOGY REPORT (SQ) ---
EXAM DESCRIPTION: XR CHEST 1 VIEW COMPLETED DATE/TME: 02/21/2018 03:51 CLINICAL HISTORY: 67 years Female, chest pain COMPARISON: None. NUMBER OF VIEWS/TECHNIQUE: 1/AP FINDINGS: Adequate lung volume, pulmonary vascular congestion, normal cardiac silhouette, and intact bony thorax. IMPRESSION: Pulmonary vascular congestion.
[2018-02-21 04:32] LABS: ABSOLUTE EOSINOPHILS # (AUTO) 0.4 10^3/uL (0.0-0.6); ABSOLUTE MONOCYTES (AUTO) 0.8 10^3/uL (0.1-1.4); ABSOLUTE NEUT (AUTO) 5.2 10^3/uL (1.7-8.2); BASOPHILS % (AUTO) 0.3 % (0-2); EOSINOPHILS % (AUTO) 4.6 % (0-6); HEMATOCRIT 40.8 % (36.0-47.0); HEMOGLOBIN 14.1 g/dL (12.0-15.5); LYMPHOCYTES % (AUTO) 24.4 % (13-45); MEAN CORPUSCULAR HEMOGLOBIN 30.8 pg (27.0-33.4); MEAN CORPUSCULAR HGB CONC 34.5 g/dL (32.0-36.0); MEAN CORPUSCULAR VOLUME 89 fl (80-97); MONOCYTES % (AUTO) 9.2 % (3-13); PLATELET COUNT 310 10^3/uL (150-450); RED BLOOD COUNT 4.58 10^6/uL (3.72-5.28); RED CELL DISTRIBUTION WIDTH 14.4 % (11.5-14.0); SEGMENTED NEUTROPHILS % (AUTO) 61.5 % (42-78); TOTAL CELLS COUNTED % (AUTO) 100 %; WHITE BLOOD COUNT 8.4 10^3/uL (4.0-10.5)
[2018-02-21 04:49] LABS: ALANINE AMINOTRANSFERASE 34 U/L (9-52); ALBUMIN 4.1 g/dL (3.5-5.0); ALKALINE PHOSPHATASE 80 U/L (38-126); ANION GAP 7 (5-19); ASPARTATE AMINO TRANSFERASE 27 U/L (14-36); BILIRUBIN,DIRECT 0.3 mg/dL (0.0-0.4); BILIRUBIN,TOTAL 0.5 mg/dL (0.2-1.3); BLOOD UREA NITROGEN 21 mg/dL (7-20); CALCIUM 9.9 mg/dL (8.4-10.2); CARBON DIOXIDE 27 mmol/L (22-30); CHLORIDE 103 mmol/L (98-107); CREATINE KINASE 466 U/L (30-135); GLUCOSE 109 mg/dL (75-110); POTASSIUM 3.5 mmol/L (3.6-5.0); TOTAL PROTEIN 7.4 g/dL (6.3-8.2)
[2018-02-21 05:01] LABS: CREATINE KINASE MB 4.14 ng/mL (<4.55)
[2018-02-21 05:03] LABS: TROPONIN I < 0.012 ng/mL
--- NOTE | 2018-02-21 05:53 | ER Document Report ---
ED Medical Screen (RME) - General Chief Complaint: Chest Pain Stated Complaint: UNABLE TO WALK/BODY PAIN Time Seen by Provider: 02/21/18 03:49 Mode of Arrival: Wheelchair Information source: Patient Notes: Patient is a 67-year-old female who presents with multiple complaints today. Patient reports pain in her chest, neck, back, bilateral legs and bilateral arms. Patient reports these pains are intermittent. Patient reports she has chronic pain, sees a neurologist as well as a chronic pain doctor. Patient denies any numbness or tingling. Patient reports that the chest pain is new tonight, is located in the middle of her chest and feels similar to when she has had acid reflux in the past although she is concerned she could be having a heart attack as her sister from one not too long ago. Exam: Alert/oriented x4. Lungs sounds clear and equal. Moves all extremities without difficulty. I have greeted and performed a rapid initial assessment of this patient. A comprehensive ED assessment and evaluation of the patient, analysis of test results and completion of the medical decision making process will be conducted by additional ED providers. Dictation of this chart was performed using voice recognition software; therefore, there may be some unintended grammatical errors. TRAVEL OUTSIDE OF THE [place] IN LAST 30 DAYS: No - Related Data Allergies/Adverse Reactions: JAKUB Inhibitors [Jakub Inhibitors] Allergy (Verified 02/21/18 04:22) Swelling lisinopril [Lisinopril] Allergy (Verified 02/21/18 04:22) prednisone Allergy (Verified 02/21/18 04:22) Past Medical History - Social History Chew tobacco use (# tins/day): No Frequency of alcohol use: Occasional Drug Abuse: None - Past Medical History Cardiac Medical History: Reports: Hx Hypercholesterolemia, Hx Hypertension Denies: Hx Coronary Artery Disease, Hx Heart Attack Pulmonary Medical History: Reports: Hx Pneumonia Denies: Hx Asthma, Hx Bronchitis, Hx COPD, Hx Tuberculosis Neurological Medical History: Denies: Hx Cerebrovascular Accident, Hx Seizures Renal/ Medical History: Denies: Hx Peritoneal Dialysis Musculoskeltal Medical History: Reports Hx Arthritis Past Surgical History: Reports: Hx Hysterectomy - Immunizations Hx Diphtheria, Pertussis, Tetanus Vaccination: Yes - 2013 Physical Exam - Vital signs Vitals: Pulse Ox 97 02/21/18 03:33 Course - Vital Signs Vital signs: Temp Pulse Resp BP Pulse Ox 98.1 F 100 20 154/79 H 97 02/21/18 03:34 02/21/18 03:34 02/21/18 05:37 02/21/18 05:37 02/21/18 05:37 - Laboratory Result Diagrams: 02/21/18 04:15 02/21/18 04:15 Laboratory results interpreted by me: 02/21/18 02/21/18 04:15 04:15 RDW 14.4 H Potassium 3.5 L BUN 21 H Creatine Kinase 466 H Doctor's Discharge - Discharge Referrals: VIRGINIA LANG MD [Primary Care Provider] - Follow up as needed
--- NOTE | 2018-02-21 06:33 | ER Document Report ---
ED General - General Mode of Arrival: Wheelchair Information source: Patient TRAVEL OUTSIDE OF THE [place] IN LAST 30 DAYS: No <KM MAR - Last Filed: 02/21/18 07:39> <HEATH SMITH - Last Filed: 02/21/18 08:29> - General Chief Complaint: Chest Pain Stated Complaint: UNABLE TO WALK/BODY PAIN Time Seen by Provider: 02/21/18 03:49 Notes: 67-year-old female who presents to the emergency department today with complaints of migratory myalgias. Patient states she has been having pain "everywhere" for the last 3 days. Patient mentions "I can have pain in my left knee and then when that subsides it will hurt in my right elbow". Patient states this is unlike any pain she has had in the past and it "can't be arthritis". Patient states she has taken ibuprofen for this at home with minimal relief. Patient states she is no longer taking gabapentin, Ultram, or meloxicam which she has been on in the past. Patient states she cannot take steroids because they make her psychotic. (KM MAR) 67-year-old female patient complaining of pains all over her body that tend to migrate and come intermittently. She states this is been going on for 3 days. She claims she cannot lay on the bed, cannot walk. She is sitting up on stretcher and seemed quite comfortable during the entire history and physical. She wants to be admitted to the hospital for extensive testing. Her total CK is 466, the highest it has been in the past was 310. There is no history of any excessive activity that would have caused the muscle enzymes to climb. We will check sed rate and a CRP, and if these are normal, refer the patient back to her primary care provider for further evaluation and management of her generalized myalgias. (HEATH SMITH) - Related Data Allergies/Adverse Reactions: JAKUB Inhibitors [Jakub Inhibitors] Allergy (Verified 02/21/18 04:22) Swelling lisinopril [Lisinopril] Allergy (Verified 02/21/18 04:22) prednisone Allergy (Verified 02/21/18 04:22) Past Medical History - General Information source: Patient - Social History Smoking Status: Current Every Day Smoker Cigarette use (# per day): Yes Chew tobacco use (# tins/day): No Frequency of alcohol use: Occasional Drug Abuse: None Lives with: Family Family History: Reviewed & Not Pertinent Patient has suicidal ideation: No Patient has homicidal ideation: No - Past Medical History Cardiac Medical History: Reports: Hx Hypercholesterolemia, Hx Hypertension Pulmonary Medical History: Reports: Hx Pneumonia Musculoskeletal Medical History: Reports Hx Arthritis Past Surgical History: Reports: Hx Hysterectomy - Immunizations Hx Diphtheria, Pertussis, Tetanus Vaccination: Yes - 2013 Hx Pneumococcal Vaccination: 05/25/09 <KM [facility] - Last Filed: 02/21/18 07:39> Review of Systems - Review of Systems Constitutional: No symptoms reported EENT: No symptoms reported Cardiovascular: No symptoms reported Respiratory: No symptoms reported Gastrointestinal: No symptoms reported Genitourinary: No symptoms reported Female Genitourinary: No symptoms reported Musculoskeletal: See HPI, Muscle pain - generalized Skin: No symptoms reported Hematologic/Lymphatic: No symptoms reported Neurological/Psychological: No symptoms reported -: Yes All other systems reviewed and negative <KM MAR - Last Filed: 02/21/18 07:39> Physical Exam <KM MAR - Last Filed: 02/21/18 07:39> <HEATH SMITH - Last Filed: 02/21/18 08:29> - Vital signs Vitals: Pulse Ox 97 02/21/18 03:33 - Notes Notes: Physical Exam: General: Alert, appears well. Generalized musculature ttp. HEENT: Normocephalic. Atraumatic. PERRL. Extraocular movements intact. Oropharynx clear. Neck: Supple. Non-tender. Respiratory: No respiratory distress. Clear and equal breath sounds bilaterally. Cardiovascular: Regular rate and rhythm. Abdominal: Obese. Non-tender. No distension. Normal Bowel Sounds. Back: Non-tender. No deformity or step off. Extremities: Moves all four extremities. Upper extremities: Generalized muscle ttp. Normal ROM. Lower extremities: Generalized muscle ttp. No edema. Normal ROM. Neurological: Normal cognition. AAOx4. Normal speech. Psychological: Normal affect. Normal Mood. Skin: Warm. Dry. Normal color. (KM MAR) Course - Laboratory Result Diagrams: 02/21/18 04:15 02/21/18 04:15 <KM MAR - Last Filed: 02/21/18 07:39> - Laboratory Result Diagrams: 02/21/18 04:15 02/21/18 04:15 <HEATH SMITH - Last Filed: 02/21/18 08:29> - Re-evaluation Re-evalutation: 02/21/18 08:29 Patient feels better after the Percocet. She feels she would be able to rest and sleep at this point. Sed rate is only 14, CRP is 9 which is normal. She does have appointment scheduled with her doctor and her neurologist this week for further testing. (HEATH SMITH) - Vital Signs Vital signs: Temp Pulse Resp BP Pulse Ox 98.1 F 100 20 162/87 H 98 02/21/18 03:34 02/21/18 03:34 02/21/18 07:00 02/21/18 07:00 02/21/18 07:00 - Laboratory Laboratory results interpreted by me: 02/21/18 02/21/18 04:15 04:15 RDW 14.4 H Potassium 3.5 L BUN 21 H Creatine Kinase 466 H Discharge <KM MAR - Last Filed: 02/21/18 07:39> <HEATH SMITH - Last Filed: 02/21/18 08:29> - Discharge Clinical Impression: Generalized body aches Condition: Stable Disposition: HOME, SELF-CARE Additional Instructions: Myalagia (Muscle Pain) Myalgia is pain in the muscles. We use the word myalgia to describe muscle pain where there's no history of injury, no known muscle disease, and the muscles are normal to examination. Myalgias can be a symptom of an acute illness , such as influenza, hepatitis, or any viral illness, especially with fever. Sometimes the muscle pain comes before any other symptoms. Myalgia can also be an early symptom of inflammatory muscle disease, such as lupus. If myalgia is accompanied by an acute illness that explains the muscle pain , then no further testing needs to be done. When there's no clear reason for the pain, tests may be done to see if there's an inflammatory or other disease of the muscles. The usual treatment for myalgias is anti-inflammatory medication, such as ibuprofen. Muscle aches may be soothed with a heating pad or hot compress. If muscles remain painful for more than a few days, you'll need testing and followup. Return if a muscle becomes swollen, red, or severely painful. No clear explanation for your generalized muscle aching was found. Take the pain medication as prescribed if needed so that you are able to rest. Follow-up with your doctor this week as planned. RETURN TO THE EMERGENCY ROOM IF ANY NEW OR WORSENING SYMPTOMS. Prescriptions: Oxycodone HCl/Acetaminophen [Percocet 5-325 mg Tablet] 1 tab PO ASDIR PRN #15 tablet PRN Reason: Referrals: VIRGINIA LANG MD [Primary Care Provider] - Follow up as needed Scribe Attestation: 02/21/18 08:29 I personally performed the services described in the documentation, reviewed and edited the documentation which was dictated to the scribe in my presence, and it accurately records my words and actions. (HEATH SMITH) Scribe Documentation - Scribe Written by Warren:: Warren Pendleton, 02/21/2018 [id number] acting as scribe for :: Geovani <KM MAR - Last Filed: 02/21/18 07:39>
[2018-02-21] MEDS ORDERED: ONDANSETRON 4 MG TAB.RAPDIS PO ONE (06:35)
[2018-02-21] MEDS ORDERED: OXYCODONE-ACETAMINOPHEN 5-325 MG TABLET PO ONE ×2 (06:35→06:45)
[2018-02-21 07:03] LABS: C-REACTIVE PROTEIN 9.2 mg/L (<10.0)
[2018-02-21 08:34] VITALS: BP 164/85
--- NOTE | 2018-02-21 16:53 | EKG REPORT ---
SEVERITY:- ABNORMAL ECG - SINUS RHYTHM VENTRICULAR PREMATURE COMPLEX PROBABLE LEFT ATRIAL ABNORMALITY PROBABLE LEFT VENTRICULAR HYPERTROPHY : Confirmed by: Yue Garay MD 21-Feb-2018 16:53:20
== END 2018-02-21 08:40 | disposition home or self-care (01) ==
LOC: ER 03:19
DX: M79.1 Myalgia (principal); I10 Essential (primary) hypertension; F17.210 Nicotine dependence, cigarettes, uncomplicated; Z88.8 Allergy status to other drugs, medicaments and biological substances
CPT/HCPCS: 93005; 99285; 36415; 82553; 82550; 85025; 85652; 86140; 80053; 84484; 71045; 93010; A9270; S0119

== ENCOUNTER → 2018-04-19 | Outpatient (CLI) | payer MEDICARE, BC ==
--- NOTE | 2018-04-19 15:06 | RADIOLOGY REPORT (SQ) ---
EXAM DESCRIPTION: MRI LUMBAR SPINE WITHOUT COMPLETED DATE/TIME: 04/19/2018 2:42 pm REASON FOR STUDY: M54.16 RADICULOPATHY, LUMBAR REGION M54.16 RADICULOPATHY, LUMBAR REGION COMPARISON: MRI lumbar spine 10/30/2016 TECHNIQUE: Sagittal and Axial imaging includes T1, T2, STIR and gradient echo sequences. Coronal T2/ HASTE imaging. LIMITATIONS: None. FINDINGS: VISUALIZED UPPER ABDOMEN: Too numerous to count hepatic cysts and bilateral renal cortical cysts, worrisome for adult polycystic kidney disease. SEGMENTATION: No transitional anatomy. The lowest well-developed disc space is labeled L5-S1. ALIGNMENT: Grade 1 anterolisthesis of L4 over L5 VERTEBRAE: Intact. BONE MARROW: Sclerotic vertebral body endplate changes at multiple levels DISC SIGNAL: Diffuse decreased T2 weighted intervertebral disc signal with multilevel disc space loss of height POSTERIOR ELEMENTS: Generally intact. No pars defect evident. HARDWARE: None in the spine. CORD AND CONUS: Normal in size and signal intensity. Conus at the L1-2 level. SOFT TISSUES: No aortic aneurysm seen. No bulky retroperitoneal adenopathy or mass. No paraspinal mas s or fluid. T10-11: At the upper edge of the field of view. Bulky bilateral facet hypertrophy causes moderate t o marked bilateral T10-11 foraminal narrowing. Borderline central canal narrowing. T11-12: Mild diffuse posterior disc bulging and bulky bilateral facet and ligament hypertrophy. No central stenosis. Mild right foraminal narrowing, moderate left foraminal narrowing. T12-L1: Broad diffuse posterior disc bulge is present with bulky bilateral facet and ligament hypert rophy. Mild central canal stenosis. Mild bilateral foraminal narrowing. L1-L2: Broad diffuse posterior disc bulging and moderate bilateral facet and ligament hypertrophy cau ses moderate central canal narrowing with partial effacement of the CSF around the lumbar nerve roots . There is mild bilateral inferior foraminal narrowing without exiting L1 nerve root impingement. L2-L3: Left paracentral disc herniation with superior migration of the extruded fragment, flattening the thecal sac in the lateral recess near the takeoff of the left proximal L3 nerve root. This is be st shown on axial T2 image 9 and sagittal image 10. This is similar compared to prior MRI from October 2016. Elsewhere at L2-3 there is moderate to high-grade central canal narrowing with effacement of the CSF around the lumbar nerve roots, best shown on axial T2 image 10. Moderate bilateral facet and ligamen t hypertrophy is present. Moderate bilateral foraminal narrowing is present without exiting L2 nerve root impingement. L3-L4: Broad diffuse posterior disc bulge and bony spurring is present with bulky bilateral facet and ligament hypertrophy. High-grade central canal narrowing is present, with effacement of the CSF noah und the lumbar nerve roots. There is high-grade right foraminal narrowing with effacement of the fat around the exiting right L3 nerve root. This is similar compared to prior MRI from 2017. Moderate left foraminal narrowing, without definite left exiting L3 nerve root impingement L4-L5: Grade 1 anterolisthesis of L4 over L5, broad diffuse posterior disc bulging and bulky bilatera l facet and ligament hypertrophy causes high-grade central canal stenosis, best shown on axial T2 ser ies 6, image 21. Elsewhere at L4-5, there is moderate bilateral foraminal narrowing without exiting L4 nerve root impingement. L5-S1: Mild diffuse posterior disc bulge and bony spurring and bulky bilateral facet hypertrophy is p resent. High-grade central canal stenosis with effacement of the CSF around the lumbar nerve roots. Moderate right, high-grade left foraminal narrowing with effacement of the fat around the exiting le ft L5 nerve root. This is similar compared to prior study SACRUM: Visualized upper sacrum intact. OTHER: No other significant findings. IMPRESSION: Multilevel significant central and foraminal stenosis, similar compared to MRI 10/30/2016 TECHNICAL DOCUMENTATION: JOB ID: [id number] [employer]- All Rights Reserved Reading location - IP/workstation name: [email or web address]
== END ==
LOC: RAD 15:36
PROVIDERS: ATTEND Physician Assistant
DX: M54.16 Radiculopathy, lumbar region (principal); M48.061 Spinal stenosis, lumbar region without neurogenic claudication
CPT/HCPCS: 72148

== ENCOUNTER → 2018-08-31 | Outpatient (CLI) | payer MEDICARE, BC ==
--- NOTE | 2018-08-31 15:12 | WOMENS IMAGING REPORT ---
EXAM DESCRIPTION: BONE DENSITY HIP/SPINE COMPLETED DATE/TIME: 08/31/2018 2:07 pm REASON FOR STUDY: Z12.31 ROUTINE 3D BILATERAL SCREENING, M81.0 AGE RELATED OSTEOPOROSIS WITHO M81.8 OTHER OSTEOPOROSIS WITHOUT CURRENT PATHOLOGICAL FRACTU Z12.31 ENCNTR SCREEN MAMMOGRAM FOR MALIGNANT NEOPLASM OF FRANKY M81.0 AGE-RELATED OSTEOPOROSIS W/O CURRENT PATHOLOGICAL FRAC COMPARISON: 2010 TECHNIQUE: Dual-Energy X-ray Absorptiometry (DEXA) of the AP Spine and Hip. LIMITATIONS: None. FINDINGS: LUMBAR SPINE: The bone mineral density (BMD) measured from L1-L4 in the AP projection correlates with a T-score of +3.3, which is normal as defined by the World Health Organization. Please note that this does includ e vertebral body endplate sclerosis and facet arthropathy HIP: The bone mineral density (BMD) measured in the left femoral neck at the hip correlates with a T-score of +0.8, which is normal as defined by the World Health Organization. This is stable compared to 20 11 IMPRESSION: 1. LUMBAR SPINE: Normal 2. HIP: Normal COMMENT: The World Health Organization defines low BMD as follows: T-score: Normal: Greater than -1.0 Osteopenia: Between -1.0 and -2.5 Osteoporosis: Less than -2.5 without fractures Established osteoporosis: Less than -2.5 with fractures In general, you may wish to consider: Diagnosis Treatment Follow-up DEXA Normal BMD Prevention 2-3 years Osteopenia Prevention/Therapy 1-2 years Osteoporosis Therapy Yearly TECHNICAL DOCUMENTATION: JOB ID: [id number] [employer]- All Rights Reserved Reading location - IP/workstation name: [email or web address]
--- NOTE | 2018-08-31 16:54 | WOMENS IMAGING REPORT ---
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 LIMITATIONS: None. FINDINGS: No masses, calcifications or architectural distortion. No areas of suspicion. Read with the assistance of CAD. .[facility] - R2 Cenova Version 1.3 .[facility] Imaging - R2 Cenova Version 2.1 .[facility] - R2 Cenova Version 2.4 .[facility] [place] Cenova Version 2.4 .[facility] - R2 Millinery Blocker Version 9.2 IMPRESSION: NORMAL MAMMOGRAM. BIRADS 1. BREAST DENSITY: b. There are scattered areas of fibroglandular density. BIRAD: 1 NEGATIVE RECOMMENDATION: ROUTINE SCREENING COMMENT: The patient has been notified of the results by letter per SA requirements. Additional no tification policies are in place for contacting patient with suspicious or incomplete findings. Quality ID #225: The [employer] recommends an annual screening mammogram for women aged 40 years or over. This facility utilizes a reminder system to ensure that all patients receive reminder letters, and/or direct phone calls for appointments. This includes reminders for routine scr eening mammograms, diagnostic mammograms, or other Breast Imaging Interventions when appropriate. Th is patient will be placed in the appropriate reminder system. The [employer] (ACR) has developed recommendations for screening MRI of the breast s in certain patient populations, to be used in conjunction with mammography. Breast MRI surveillanc e may be appropriate for women with more than 20% lifetime risk of developing breast cancer as deter mined by genetic testing, significant family history of the disease, or history of mantle radiation f or Hodgkins Disease. ACR Practice Guidelines 2008. DBT Technology DBT is a type of tomographic mammography. With conventional mammography, overlapping breast tissue ma y make lesions difficult to detect, even with good compression. DBT uses an x-ray tube that rotates a round the breast, taking images at different angles. These images are then combined to create thin sl ices of the breast that the radiologist can view as a 3D reconstruction. The Hologic unit can perform full-field digital mammograms (2D imaging); or DBT (3D imaging); or both, in a combination mode that quickly performs both the mammogram and the tomosynthesis scan while the breast is still compressed. PQRS 6045F: Fluoroscopic imaging is not utilized for breast tomosynthesis. TECHNICAL DOCUMENTATION: FINDING NUMBER: (1) ASSESSMENT: (1) JOB ID: [id number] [employer]- All Rights Reserved Reading location - IP/workstation name: [email or web address]
== END ==
LOC: WI 13:31
PROVIDERS: ATTEND Student in an Organized Health Care Education/Training Program
DX: Z12.31 Encounter for screening mammogram for malignant neoplasm of breast (principal); M81.8 Other osteoporosis without current pathological fracture
CPT/HCPCS: 77063; 77067; 77080

== ENCOUNTER → 2018-10-27 | Outpatient (CLI) | payer MEDICARE, BC ==
--- NOTE | 2018-10-27 14:25 | RADIOLOGY REPORT (SQ) ---
EXAM DESCRIPTION: MRI RT UPPER JOINT WITHOUT COMPLETED DATE/TIME: 10/27/2018 1:48 pm REASON FOR STUDY: M25.511 PAIN IN RIGHT SHOULDER M25.511 PAIN IN RIGHT SHOULDER COMPARISON: None. TECHNIQUE: Right shoulder images acquired and stored on PACS. Multiplanar imaging to include fat sen sitive sequences such as T1, water sensitive sequences such as FST2/STIR, cartilage sensitive sequenc es such as FSPD/gradient-echo sequences. LIMITATIONS: None. FINDINGS: BONE MARROW AND CORTEX: No worrisome bone lesions or marrow replacement. No occult fractur es. JOINT OR BURSAL EFFUSION: Trace joint and bursal fluid. GLENO-HUMERAL ARTICULATION: Superior migration humeral head. No focal chondral defects or reactive b one cysts. ACROMION AND AC JOINT: Marrow edema about the AC joint. Minimal fluid in the joint with slight overg rowth. There is loss of the subacromial space. ROTATOR CUFF AND INTERVAL: Full-thickness full width cuff tear with retraction to the level of the ac romion and undersurface delamination. There is apparent loss of muscle bulk, atrophy in the supraspi natus and infraspinatus. Tendinosis in the subscapularis with minimal partial tear. LABRUM AND BICEPS LABRAL COMPLEX: Irregular blunting and diffuse tear suspected with nonvisualizati on of the long head biceps tendon. REMAINDER OF LABRUM AND IGHL : Relatively intact. PERIARTICULAR AND ADJACENT SOFT TISSUES: No masses or abnormal nodes. OTHER: No other significant finding. IMPRESSION: 1. Full-thickness full width cuff tear with retraction and atrophy as above. 2. Torn superior labrum with disrupted long head biceps tendon. TECHNICAL DOCUMENTATION: JOB ID: [id number] [employer]- All Rights Reserved Reading location - IP/workstation name: [email or web address] [email or web address]
== END ==
LOC: RAD 13:04
PROVIDERS: ATTEND Physician Assistant
DX: M75.121 Complete rotator cuff tear or rupture of right shoulder, not specified as traumatic (principal); M25.511 Pain in right shoulder

== ENCOUNTER → 2019-01-03 | Outpatient (CLI) | payer MEDICARE, BC ==
--- NOTE | 2019-01-03 15:18 | RADIOLOGY REPORT (SQ) ---
EXAM DESCRIPTION: MRI LUMBAR SPINE WITHOUT COMPLETED DATE/TIME: 01/03/2019 11:44 am REASON FOR STUDY: LOW BACK PAIN M54.5 LOW BACK PAIN COMPARISON: None. TECHNIQUE: Sagittal and Axial imaging includes T1, T2, STIR and gradient echo sequences. Coronal T2/ HASTE imaging. LIMITATIONS: None. FINDINGS: VISUALIZED UPPER ABDOMEN: There are numerous relatively small renal cysts. SEGMENTATION: No transitional anatomy. The lowest well-developed disc space is labeled L5-S1. ALIGNMENT: Scoliosis. Grade 1 anterolisthesis of L4 on L5. VERTEBRAE: Intact. BONE MARROW: Normal. No marrow replacement or reactive changes. DISC SIGNAL: There is disc narrowing throughout the lumbar spine with desiccation changes. POSTERIOR ELEMENTS: Hypertrophic ligament and facet changes are seen at multiple levels. HARDWARE: None in the spine. CORD AND CONUS: Normal in size and signal intensity. Conus at the L1 level. SOFT TISSUES: No aortic aneurysm seen. No bulky retroperitoneal adenopathy or mass. No paraspinal mas s or fluid. L1-L2: Broad-based disc bulge with bilateral foraminal narrowing. L2-L3: Broad-based disc bulge with left paracentral disc protrusion. There is bilateral foraminal na rrowing. L3-L4: Circumferential disc bulge. Facet and ligament hypertrophy that is more prominent on the righ t that indents the thecal sac. Right foraminal stenosis. Central canal stenosis. L4-L5: Facet and ligament hypertrophy. Significant central canal stenosis. Mild right foraminal navneet nosis. L5-S1: Facet hypertrophy. LOWER THORACIC: Incompletely imaged. No stenosis seen. SACRUM: Visualized upper sacrum intact. OTHER: No other significant findings. IMPRESSION: Levoscoliosis. Grade 1 anterolisthesis of L4 on L5. Facet arthropathy. Multilevel dis c changes as described. There is a left paracentral disc protrusion at L2-3. There is significant c entral canal stenosis at L4-5. Findings as described. TECHNICAL DOCUMENTATION: JOB ID: [id number]- All Rights Reserved Reading location - IP/workstation name: [email or web address]
== END ==
LOC: RAD 10:32
PROVIDERS: ATTEND Physician Assistant
DX: M51.26 Other intervertebral disc displacement, lumbar region (principal); M48.061 Spinal stenosis, lumbar region without neurogenic claudication
CPT/HCPCS: 72148

== ENCOUNTER → 2019-03-07 | Outpatient (CLI) | payer MEDICARE, BC ==
[2019-03-07 10:36] LABS: ABSOLUTE BASOPHILS # (AUTO) 0.1 10^3/uL (0.0-0.2); ABSOLUTE EOSINOPHILS # (AUTO) 0.3 10^3/uL (0.0-0.6); ABSOLUTE LYMPHOCYTES (AUTO) 1.8 10^3/uL (0.5-4.7); ABSOLUTE MONOCYTES (AUTO) 0.6 10^3/uL (0.1-1.4); ABSOLUTE NEUT (AUTO) 5.2 10^3/uL (1.7-8.2); BASOPHILS % (AUTO) 0.8 % (0-2); EOSINOPHILS % (AUTO) 3.8 % (0-6); HEMATOCRIT 40.3 % (36.0-47.0); HEMOGLOBIN 13.6 g/dL (12.0-15.5); LYMPHOCYTES % (AUTO) 22.5 % (13-45); MEAN CORPUSCULAR HEMOGLOBIN 29.6 pg (27.0-33.4); MEAN CORPUSCULAR HGB CONC 33.8 g/dL (32.0-36.0); MEAN CORPUSCULAR VOLUME 88 fl (80-97); MONOCYTES % (AUTO) 8.1 % (3-13); PLATELET COUNT 369 10^3/uL (150-450); RED CELL DISTRIBUTION WIDTH 15.2 % (11.5-14.0); SEGMENTED NEUTROPHILS % (AUTO) 64.8 % (42-78); TOTAL CELLS COUNTED % (AUTO) 100 %
[2019-03-07 10:58] LABS: ALBUMIN 4.4 g/dL (3.5-5.0); ALKALINE PHOSPHATASE 94 U/L (38-126); ANION GAP 9 (5-19); ASPARTATE AMINO TRANSFERASE 25 U/L (14-36); BILIRUBIN,DIRECT 0.1 mg/dL (0.0-0.4); BILIRUBIN,TOTAL 0.3 mg/dL (0.2-1.3); BLOOD UREA NITROGEN 27 mg/dL (7-20); CARBON DIOXIDE 27 mmol/L (22-30); CHLORIDE 104 mmol/L (98-107); CHOLESTEROL 212.79 mg/dL (0-200); GLUCOSE 111 mg/dL (75-110); POTASSIUM 4.3 mmol/L (3.6-5.0); TOTAL PROTEIN 7.7 g/dL (6.3-8.2); TRIGLYCERIDES 72 mg/dL (<150)
[2019-03-07 11:10] LABS: DIRECT LDL 142 mg/dL (<100)
== END ==
LOC: OD 09:36
PROVIDERS: ATTEND Physician Assistant
DX: I10 Essential (primary) hypertension (principal); Z86.39 Personal history of other endocrine, nutritional and metabolic disease; R39.9 Unspecified symptoms and signs involving the genitourinary system
CPT/HCPCS: 36415; 80053; 80061; 83036; 84443; 85025

== ENCOUNTER → 2019-04-15 | Outpatient (CLI) | payer MEDICARE, BC ==
--- NOTE | 2019-04-16 13:32 | RADIOLOGY REPORT (SQ) ---
EXAM DESCRIPTION: MRI LT LOWER JOINT WITHOUT COMPLETED DATE/TIME: 04/15/2019 2:16 pm REASON FOR STUDY: LEFT KNEE PAIN (M25.562) M25.562 PAIN IN LEFT KNEE COMPARISON: None. TECHNIQUE: Leftknee images acquired and stored on PACS. Multiplanar images include fat sensitive se quences as T1, water sensitive sequences as FST2 or STIR, cartilage sensitive sequences as FSPD, and gradient echo sequences. LIMITATIONS: None. FINDINGS: JOINT AND BURSAE: No effusion. BONE CORTEX AND MARROW: No alteration of signal to suggest marrow replacement. No worrisome bone lesi ons. No occult fracture. ACL: Intact. No degeneration or ganglion cyst. PCL: Intact. MCL: Intact. No periligamentous edema or fluid. LCL: Intact. No periligamentous edema or fluid. MEDIAL MENISCUS: Horizontal tear posterior horn. LATERAL MENISCUS: There is increased T2 signal in both the anterior and posterior horns which abuts b oth articular surfaces. Suspected bucket-handle variant MEDIAL COMPARTMENT: Thinning of the articular cartilage. No large osteophytes or subchondral edema. LATERAL COMPARTMENT: Cartilage thinning. No large osteophytes or subchondral edema. PATELLA: Thinning of the patellar cartilage. No large osteophytes or subchondral edema. EXTENSOR MECHANISM: Intact. Quadriceps and patella tendons normal. SOFT TISSUES: Adjacent muscles and subcutaneous tissues normal. Normal flow void in popliteal artery and vein. OTHER: No other significant finding. IMPRESSION: 1. Horizontal tear posterior horn medial meniscus. 2. Abnormal signal in the lateral meniscus suspicious for bucket-handle tear. 3. Chondromalacia and mild osteoarthritis. TECHNICAL DOCUMENTATION: JOB ID: [id number]- All Rights Reserved Reading location - IP/workstation name: [email or web address]
== END ==
LOC: RAD 13:29
PROVIDERS: ATTEND Physician Assistant
DX: M25.562 Pain in left knee (principal)

== ENCOUNTER → 2019-05-26 | Outpatient (CLI) | payer MEDICARE, BC ==
[2019-05-26 17:20] LABS: ABSOLUTE BASOPHILS # (AUTO) 0.2 10^3/uL (0.0-0.2); ABSOLUTE EOSINOPHILS # (AUTO) 0.2 10^3/uL (0.0-0.6); ABSOLUTE LYMPHOCYTES (AUTO) 2.3 10^3/uL (0.5-4.7); ABSOLUTE MONOCYTES (AUTO) 0.7 10^3/uL (0.1-1.4); ABSOLUTE NEUT (AUTO) 5.9 10^3/uL (1.7-8.2); BASOPHILS % (AUTO) 2.3 % (0-2); EOSINOPHILS % (AUTO) 2.7 % (0-6); HEMATOCRIT 36.9 % (36.0-47.0); HEMOGLOBIN 12.7 g/dL (12.0-15.5); LYMPHOCYTES % (AUTO) 24.6 % (13-45); MEAN CORPUSCULAR HEMOGLOBIN 30.3 pg (27.0-33.4); MEAN CORPUSCULAR HGB CONC 34.5 g/dL (32.0-36.0); MEAN CORPUSCULAR VOLUME 88 fl (80-97); MONOCYTES % (AUTO) 7.3 % (3-13); PLATELET COUNT 523 10^3/uL (150-450); RED CELL DISTRIBUTION WIDTH 14.3 % (11.5-14.0); SEGMENTED NEUTROPHILS % (AUTO) 63.1 % (42-78); TOTAL CELLS COUNTED % (AUTO) 100 %; WHITE BLOOD COUNT 9.4 10^3/uL (4.0-10.5)
[2019-05-26 17:39] LABS: ALBUMIN 4.2 g/dL (3.5-5.0); ALKALINE PHOSPHATASE 84 U/L (38-126); ANION GAP 11 (5-19); ASPARTATE AMINO TRANSFERASE 19 U/L (14-36); BILIRUBIN,DIRECT 0.2 mg/dL (0.0-0.4); BILIRUBIN,TOTAL 0.3 mg/dL (0.2-1.3); BLOOD UREA NITROGEN 30 mg/dL (7-20); CALCIUM 10.1 mg/dL (8.4-10.2); CARBON DIOXIDE 24 mmol/L (22-30); CHLORIDE 106 mmol/L (98-107); GLUCOSE 82 mg/dL (75-110); POTASSIUM 4.8 mmol/L (3.6-5.0); TOTAL PROTEIN 7.9 g/dL (6.3-8.2)
== END ==
LOC: OD 16:29
PROVIDERS: ATTEND Physician Assistant
DX: Z11.2 Encounter for screening for other bacterial diseases (principal); I10 Essential (primary) hypertension
CPT/HCPCS: 36415; 80053; 85025; 87070

== ENCOUNTER → 2019-08-03 | Outpatient (CLI) | payer MEDICARE, BC ==
--- NOTE | 2019-08-03 12:32 | RADIOLOGY REPORT (SQ) ---
EXAM DESCRIPTION: VENOUS UNILATERAL LOWER COMPLETED DATE/TIME: 08/03/2019 11:55 am REASON FOR STUDY: LLE PAIN M79.662 PAIN IN LEFT LOWER LEG COMPARISON: None. TECHNIQUE: Dynamic and static stone scale and color images acquired of the left leg venous system. Se lected spectral images acquired with additional compression and augmentation maneuvers. The contralat eral common femoral vein and saphenofemoral junction were also imaged. Images stored on PACS. LIMITATIONS: None. FINDINGS: COMMON FEMORAL: Normal phasicity, compression and augmentation. No visualized echogenic ma terial on stone scale. No defects on color images. FEMORAL: Normal compression and augmentation. No visualized echogenic material on stone scale. No defe cts on color images. POPLITEAL: Normal compression, augmentation. No visualized echogenic material on stone scale. No defec ts on color images. CALF VESSELS: Normal compression, augmentation. No visualized echogenic material on stone scale. No de fects on color images. GSV and SSV: Normal compression, augmentation. No visualized echogenic material on stone scale. No def ects on color images. ANY DEEP VENOUS INSUFFICIENCY: Not evaluated. ANY EVIDENCE OF POPLITEAL CYST: No. OTHER: No other significant finding. CONTRALATERAL COMMON FEMORAL VEIN AND SAPHENOFEMORAL JUNCTION: Normal phasicity, compression and augmentation. No visualized echogenic material on stone scale. No de fects on color images. IMPRESSION: NO EVIDENCE DVT OR SVT IN THE LEFT LEG. TECHNICAL DOCUMENTATION: JOB ID: [id number] 2010 [employer]- All Rights Reserved Reading location - IP/workstation name: [email or web address]
== END ==
LOC: SP 10:35
PROVIDERS: ATTEND Physician Assistant
DX: M79.662 Pain in left lower leg (principal)
CPT/HCPCS: 93971

== ENCOUNTER → 2019-11-05 | Outpatient (CLI) | payer MEDICARE, BC ==
--- NOTE | 2019-11-05 14:11 | RADIOLOGY REPORT (SQ) ---
EXAM DESCRIPTION: MRI LT LOWER JOINT WITHOUT IMAGES COMPLETED DATE/TIME: 11/05/2019 11:44 am REASON FOR STUDY: N25.562 PAIN IN LEFT KNEE M25.562 PAIN IN LEFT KNEE since May 2019. Posterio r and lateral knee pain. Swelling, weakness, decreased range of motion. Arthroscopy with menisectom y on 06/02/2019. Office visit 10/27/2019 patient received an intra-articular pain injection in the right knee. COMPARISON: None. TECHNIQUE: Leftknee images acquired and stored on PACS. Multiplanar images include fat sensitive se quences as T1, water sensitive sequences as FST2 or STIR, cartilage sensitive sequences as FSPD, and gradient echo sequences. LIMITATIONS: None. FINDINGS: JOINT AND BURSAE: There is a large knee joint effusion. No bursal fluid. BONE CORTEX AND MARROW: There is bone marrow edema in the posterior lateral femur condyles and latera l tibial plateau, consistent with kissing contusions. Osteochondral lesion in the tibial plateau. ACL: Ruptured. PCL: Intact. MCL: Intact. No periligamentous edema or fluid. LCL: Intact. No periligamentous edema or fluid. MEDIAL MENISCUS: No tears. No abnormal signal. LATERAL MENISCUS: Postsurgical change consistent with recent surgical resection. MEDIAL COMPARTMENT: Focal high signal in the articular cartilage. No areas of denuded cartilage. LATERAL COMPARTMENT: Denuded cartilage in the femoral condyles and tibial plateau. PATELLA: No chondromalacia. No subchondral cysts. Medial and lateral retinacula intact. EXTENSOR MECHANISM: Intact. Quadriceps and patella tendons normal. SOFT TISSUES: Adjacent muscles and subcutaneous tissues normal. Normal flow void in popliteal artery and vein. Small popliteal cyst. OTHER: No other significant finding. IMPRESSION: 1. Ruptured ACL. 2. Kissing contusions at the lateral femoral condyle and lateral tibial plateau. Osteochondral lesio n in the lateral tibial plateau. 3. Postsurgical change consistent with resection of the lateral meniscus. 4. Small popliteal cyst. 5. Large joint effusion, may be partially due to recent intra-articular injection of pain medication. TECHNICAL DOCUMENTATION: JOB ID: [id number] 2010 [employer]- All Rights Reserved Reading location - IP/workstation name: [email or web address]
== END ==
LOC: RAD 11:52
PROVIDERS: ATTEND Physician Assistant
DX: M25.562 Pain in left knee (principal)

== ENCOUNTER → 2019-12-08 | Outpatient (CLI) | payer MEDICARE, BC ==
[2019-12-08 15:34] LABS: APPEARANCE,URINE CLEAR; BILIRUBIN,URINE NEGATIVE (NEGATIVE); COLOR,URINE YELLOW; GLUCOSE, URINE NEGATIVE (NEGATIVE); KETONES,URINE NEGATIVE (NEGATIVE); LEUKOCYTE ESTERASE,URINE TRACE (NEGATIVE); NITRITE,URINE NEGATIVE (NEGATIVE); PROTEIN,URINE 30 mg/dL (NEGATIVE); URINE SPECIFIC GRAVITY 1.019; UROBILINOGEN,URINE NEGATIVE mg/dL (<2.0)
[2019-12-08 15:39] LABS: HEMOGLOBIN 13.3 g/dL (12.0-15.5); MEAN CORPUSCULAR HEMOGLOBIN 29.9 pg (27.0-33.4); MEAN CORPUSCULAR VOLUME 88 fl (80-97); PLATELET COUNT 350 10^3/uL (150-450); RED BLOOD COUNT 4.43 10^6/uL (3.72-5.28); RED CELL DISTRIBUTION WIDTH 14.6 % (11.5-14.0)
[2019-12-08 15:49] LABS: ALBUMIN 4.5 g/dL (3.5-5.0); ALKALINE PHOSPHATASE 69 U/L (38-126); ANION GAP 6 (5-19); ASPARTATE AMINO TRANSFERASE 26 U/L (14-36); BILIRUBIN,TOTAL 0.3 mg/dL (0.2-1.3); BLOOD UREA NITROGEN 23 mg/dL (7-20); CALCIUM 10.4 mg/dL (8.4-10.2); CARBON DIOXIDE 27 mmol/L (22-30); CHLORIDE 106 mmol/L (98-107); GLUCOSE 110 mg/dL (75-110); POTASSIUM 3.9 mmol/L (3.6-5.0); TOTAL PROTEIN 7.5 g/dL (6.3-8.2)
== END ==
LOC: OD 14:34
PROVIDERS: ATTEND Internal Medicine
DX: I10 Essential (primary) hypertension (principal); R35.0 Frequency of micturition; E11.9 Type 2 diabetes mellitus without complications
CPT/HCPCS: 36415; 80053; 81001; 82043; 82570; 83036; 84436; 84443; 84480; 85027

== ENCOUNTER → 2020-02-15 | Outpatient (CLI) | payer MEDICARE, BC ==
--- NOTE | 2020-02-15 15:56 | WOMENS IMAGING REPORT ---
EXAM DESCRIPTION: BILAT SCREENING MAMMO W/CAD IMAGES COMPLETED DATE/TIME: 02/15/2020 3:39 pm REASON FOR STUDY: Z12.31 ENCOUNTER FOR SCREENING MAMMOGRAM FOR MALIGNANT NEOPLASM OF BREAST Z12.31 ENCNTR SCREEN MAMMOGRAM FOR MALIGNANT NEOPLASM OF FRANKY COMPARISON: 08/31/2018 and 05/05/2017. EXAM PARAMETERS: Standard craniocaudal and mediolateral oblique views of each breast recorded using digital acquisition. Read with the assistance of CAD. .[facility] - FoxyP2 Tag Meter Operator Version 9.2 LIMITATIONS: None. FINDINGS: No suspicious masses, suspicious calcifications or architectural distortion. No areas of c oncern. IMPRESSION: NEGATIVE MAMMOGRAM. BIRADS 1 BREAST DENSITY: a. The breasts are almost entirely fatty. BIRAD: ASSESSMENT: 1 NEGATIVE RECOMMENDATION: ROUTINE SCREENING COMMENT: The patient has been notified of the results by letter per MQSA requirements. Additional no tification policies are in place for contacting patient with suspicious or incomplete findings. Quality ID #225: The [employer] recommends an annual screening mammogram for women aged 40 years or over. This facility utilizes a reminder system to ensure that all patients receive reminder letters, and/or direct phone calls for appointments. This includes reminders for routine scr eening mammograms, diagnostic mammograms, or other Breast Imaging Interventions when appropriate. Th is patient will be placed in the appropriate reminder system. TECHNICAL DOCUMENTATION: FINDING NUMBER: (1) ASSESSMENT: (1) JOB ID: [id number] 2010 [employer]- All Rights Reserved Reading location - IP/workstation name: [email or web address]
== END ==
LOC: WI 15:24
PROVIDERS: ATTEND Internal Medicine
DX: Z12.31 Encounter for screening mammogram for malignant neoplasm of breast (principal)
CPT/HCPCS: 77067

== ENCOUNTER → 2020-05-23 | Outpatient (CLI) | payer MEDICARE, BC ==
--- NOTE | 2020-05-23 14:24 | RADIOLOGY REPORT (SQ) ---
EXAM DESCRIPTION: CAROTID DOPPLER IMAGES COMPLETED DATE/TIME: 05/23/2020 2:08 pm REASON FOR STUDY: DIZZINESS R42 DIZZINESS AND GIDDINESS COMPARISON: 12/16/2016 TECHNIQUE: Grayscale ultrasound, Doppler velocity and spectra, and color Doppler images acquired of the extra-cranial carotid and vertebral arteries. Images stored on PACS. LIMITATIONS: None. FINDINGS: RIGHT CAROTID CCA Velocities: Within normal limits. ICA Velocities Peak systolic 79 cm/s. End diastolic 26 cm/s. Proximal ICA/CCA peak systolic ratio 1.20. Spectra normal. No significant plaque. LEFT CAROTID CCA Velocities: Within normal limits. ICA Velocities Peak systolic 75 cm/s. End diastolic 26 cm/s. Proximal ICA/CCA peak systolic ratio 1.13. Spectra normal. No significant plaque. VERTEBRAL ARTERIES: Antegrade flow. Normal waveforms. SUBCLAVIAN ARTERIES: No finding. OTHER: No other significant finding. IMPRESSION: NO HEMODYNAMICALLY SIGNIFICANT STENOSIS. COMMENT: Quality ID #195: Velocity criteria are extrapolated from the diameter data as defined by t he Society of Radiologists in Ultrasound Consensus Conference. Radiology 2003: 229; 340-346. TECHNICAL DOCUMENTATION: JOB ID: [id number] 2010 [employer]- All Rights Reserved Reading location - IP/workstation name: [email or web address]
== END ==
LOC: SP 12:46
PROVIDERS: ATTEND Internal Medicine
DX: R42 Dizziness and giddiness (principal)
CPT/HCPCS: 93880